=== PATIENT | male | born 1950 | race Caucasian/White ===

== ENCOUNTER → 2018-04-25 | Outpatient (CLI) | payer OTHER ==
[~2018-04-25] VITALS: Ht 162.6 cm; Wt 81.2 kg
[~2018-04-25] MED LIST: AMLODIPINE BESY10 MG PO; ASPIR 8181 MG PO; CARVEDILOL12.5 MG PO; FISH OIL 1,001000 M2 PO; FOLIC ACID1 MG PO; ISOSORBIDE DINI20 M2 PO; JANUVIA100 MG PO; L-ARGININE1000 MG PO; LISINOPRIL5 MG PO; METFORMIN HCL500 MG PO; NORCO 5-325 TA1 EACH PO; SIMVASTATIN40 MG PO; VITAMIN C1000 MG PO; VITAMIN D5000 UNIT PO
--- NOTE | ~2018-04-25 | HPC ---
[facility] [address] [place] [address] PAIN MANAGEMENT CONSULTATION Name: FROYLAN WEIR Room #: REG SYLVESTER RaheemJose Alejandro.#: [id number] Admission: 04/25/18 Attend Phys: Alek Quintana MD Discharge: Date of : 54 Report #: [id number] THIS REPORT FOR: //name// CC: Johnson Quintana DATE OF SERVICE: 04/25/2018 CHIEF COMPLAINT: Right leg pain. HISTORY OF PRESENT ILLNESS: The patient is a 68-year-old gentleman who has been referred to the pain clinic for evaluation of pain. The patient noticed onset of pain and discomfort on 04/17/2018. He was experiencing extreme pain in his lower back with pain that is radiating down into his right leg. Pain is made worse with walking. Any other activities other than sitting are problematic. Sitting improves his pain. He describes it as continuous, constant, burning, shooting, cramping, aching, crushing, pulling, sharp, stabbing, and tender. He rates it as a 10/10, at its worse is 8/10 at this juncture. ALLERGIES: PROCARDIA CAUSES THE PATIENT TO FEEL DIZZY. CURRENT MEDICATIONS: Aspirin 81 mg chewable, L-arginine 1000 mg t.i.d., folic acid 1 mg, ascorbic acid 1000 mg, vitamin D 5000 units, fish oil 1000 mg, hydrocodone 5/325 q. 6 hours p.r.n. pain, simvastatin 40 mg, Januvia 100 mg, isosorbide 20 mg, amlodipine 10 mg, lisinopril 5 mg, Coreg 12.5 mg, and metformin 500 mg 4 times daily. PAST MEDICAL HISTORY: Coronary artery disease, history of Prinzmetal angina, hypertension, and hypercholesterolemia. PAST SURGICAL HISTORY: Eleven stents from [id number], coronary artery bypass graft in 1998, rotator cuff surgery in 2008, shoulder surgery in 2008, and tonsils in 1968. SOCIAL HISTORY: He is combination machine tool operator, retired in 2010. REVIEW OF SYSTEMS: Generally good health, recent weight changes, decreased appetite, fatigue, weakness, wears glasses, heart trouble, chest pain, loss of appetite, diabetes non-insulin. LABORATORY DATA: MRI dated 09/13/2016: 1. Disk desiccation and disk space narrowing with circumferential disk bulging. There is effacement of the ventral thecal sac. The AP diameter of the central canal is narrowed to 10 mm. There is bilateral facet hypertrophy. There is moderate bilateral and symmetrical neural foraminal stenosis with effacement of the undersurface of both exiting L2 nerve roots. [address] [address] PAIN MANAGEMENT CONSULTATION Name: DESTINFROYLAN Jose Alejandro [facility] #: [facility] [id number] Admission: 04/25/18 Attend Phys: Alek Quintana MD Discharge: Date of : 54 Report #: [id number] 2. L3-L4 disk space narrowing with disk desiccation, central and circumferential disk bulging. There is effacement of the ventral thecal sac. The AP diameter of the central canal is narrowed to 9 mm. There is lateral recess narrowing and bilateral neural foraminal stenosis with effacement of the undersurface of both exiting L3 nerve roots. 3. L4-L5 disk desiccation and disk space narrowing. There is a small broad-based central disk protrusion. There is no central canal stenosis. There is bilateral degenerative facet disease and mild intraspinal spurring. Bilateral neural foraminal narrowing is identified with effacement of the undersurface of both exiting L4 nerve roots. 4. L5-S1 unremarkable. PAIN CLINIC ASSESSMENT: 1. History of osteoarthritis/rheumatoid arthritis. The patient is not being treated for osteoarthritis or rheumatoid arthritis. 2. Height 5 feet 4 inches, Weight 179 pounds, BMI is 30.7. 3. Vital signs: Blood pressure 143/76, pulse 60, respiratory rate 14, room air saturation 98%. 4. Pain intensity 8/10. 5. Fall risk. The patient has not fallen in the last few days. He "falls a lot." He is using a cane. 6. Blood thinner. The patient is on Plavix. 7. Hypertension. The patient is being treated for hypertension. 8. Opioid therapy greater than 6 weeks. The patient is not on an opioid medication. 9. Risk assessment tool, low for opioid use. 10. Functional assessment tool. 11. Recreational drug use. The patient has never used recreational drugs. 12. Tobacco: The patient has never smoked. 13. Alcohol. The patient frequently drinks 3-4 times a week. PHYSICAL EXAMINATION: GENERAL: The patient is a well-developed white male, somewhat short in stature. Affect is appropriate. Speech is fluent. HEENT: Normocephalic, atraumatic. Extraocular eye muscles intact. Sclerae nonicteric. Mucous membranes are moist. Hearing is within normal limits. NECK: Good range of motion, no adenopathy. CHEST: Clear to auscultation. HEART: Regular rate. ABDOMEN: Nontender. EXTREMITIES: Upper extremity muscle strength appears to be 5/5 for the major muscle groups with symmetry. The patient without significant scoliosis, kyphosis, or lordosis. Lower extremity muscle strength is judged to be 5/5 for the major muscle groups in lower extremity. IMPRESSION: [facility] [place] [address] PAIN MANAGEMENT CONSULTATION Name: FROYLAN WEIR Room #: REG SYLVESTER Praneeth.#: [id number] Admission: 04/25/18 Attend Phys: Alek Quintana MD Discharge: Date of : 54 Report #: [id number] 1. ____the patient has pain and discomfort which is radiating down in the L5-S1 dermatomal distribution. 2. Coronary artery disease. 3. History of Prinzmetal angina. 4. Hypertension. 5. Hypercholesterolemia. RECOMMENDATIONS: We discussed treatment options with the patient. Risks and benefits of an epidural steroid injection were discussed. Possible complications of the procedure were reviewed. They include but are not limited to infection, increased muscle soreness, headache, bleeding, worsening of pain, no improvement in pain and the patient elects to proceed. PROCEDURE NOTE: The patient was placed in the prone position. Fluoroscopy was used to identify the L5-S1 area. Anterior, posterior as well as lateral imaging were used. A bolster was placed under the patient's abdomen. The back was sterilely prepped with a Betadine solution. A midline approach toward the right paracentral area was taken. A 0.25% bupivacaine was infiltrated. A 17-gauge Tuohy with loss of resistance technique was used to gain access to the epidural space. There was no CSF, heme, or paresthesia. Total of 80 mg Depo-Medrol, 40 mg of triamcinolone and 2 mL of 0.25% bupivacaine was injected. The patient tolerated the procedure well. There were no complications. He remained in the pain clinic for an appropriate amount of time. He will follow up in the future as needed. We would like to thank you for letting us participate in his care. We hope he continues to improve. By: [id number] Alek Quintana MD /nt
[2018-04-25 10:17] VITALS: BP 143/76
== END | disposition home or self-care (01) ==
LOC: PAIN 07:02
DX: M51.16 Intervertebral disc disorders with radiculopathy, lumbar region (principal); M99.73 Connective tissue and disc stenosis of intervertebral foramina of lumbar region; E11.9 Type 2 diabetes mellitus without complications; I25.10 Atherosclerotic heart disease of native coronary artery without angina pectoris; I10 Essential (primary) hypertension; E78.00 Pure hypercholesterolemia, unspecified; Z98.890 Other specified postprocedural states; Z90.89 Acquired absence of other organs; Z86.79 Personal history of other diseases of the circulatory system; Z79.82 Long term (current) use of aspirin; Z79.84 Long term (current) use of oral hypoglycemic drugs; Z79.899 Other long term (current) drug therapy; Z95.5 Presence of coronary angioplasty implant and graft; Z95.1 Presence of aortocoronary bypass graft